=== PATIENT | female | born 1985 | race Caucasian/White ===

== ENCOUNTER 2020-09-07 19:53 | Emergency (ER) | payer OTHER | END 2020-09-07 20:31 | disposition home or self-care (01) | LOC: FER 19:53 | DX: Z04.89 Encounter for examination and observation for other specified reasons (principal); F41.9 Anxiety disorder, unspecified; Z88.0 Allergy status to penicillin; Z79.899 Other long term (current) drug therapy | CPT/HCPCS: 99283 ==

== ENCOUNTER 2021-07-16 10:17 | Emergency (ER) | payer OTHER ==
[2021-07-16 11:21] LABS: INR 1.02 (0.9-1.2); PROTHROMBIN TIME 12.8 SECONDS (11.8-13.4); PTT 26.8 SECONDS (24.4-34.7)
[2021-07-16 11:28] LABS: BASOPHIL 0.4 % (0-2); EOSINOPHIL 0.6 % (0-5); HCT 45.9 % (37.0-47.0); HGB 15.1 g/dl (12.5-16.0); LYMPHOCYTE 7.7 % (15-48); MCH 29.9 pg (25.0-31.0); MCHC 32.9 g/dL (32.0-36.0); MCV 90.9 fL (78.0-100.0); MPV 9.9 fL (6.0-9.5); NRBC 0; PLT 177 K/uL (150-400); RBC 5.05 M/uL (4.20-5.40); RDW 12.6 % (11.5-14.0); WBC 18.2 K/uL (4.0-10.5)
[2021-07-16 11:36] LABS: ALBUMIN 3.7 g/dL (3.4-5.0); BILIRUBIN - TOTAL 0.6 mg/dL (0.2-1.0); BUN/CREAT RATIO (CALC) 7.9 RATIO; CREATININE 0.76 mg/dL (0.51-0.95); GLOBULIN (CALCULATION) 3.5 g/dL; POTASSIUM 4.4 mmol/L (3.5-5.1); TOTAL PROTEIN 7.2 g/dL (6.4-8.2)
== END 2021-07-16 11:49 | disposition left against medical advice (07) ==
LOC: FER 10:17
PROVIDERS: Emergency Medicine
DX: R07.89 Other chest pain (principal); R06.00 Dyspnea, unspecified; Z53.29 Procedure and treatment not carried out because of patient's decision for other reasons
CPT/HCPCS: 36415; 80053; 84484; 85025; 85610; 85730; 93005